=== PATIENT | female | born 1990 | race African-American/Black ===

== ENCOUNTER 2019-03-27 06:23 | Inpatient (IN) ==
[2019-03-27] MEDS ORDERED: CITRIC ACID/SODIUM CITRATE 30 ML UDCUP PO ONE (06:42)
[2019-03-27] MEDS ORDERED: FAMOTIDINE 20 MG/2 ML VIAL IV ONE (06:42)
[2019-03-27] MEDS ORDERED: ceFAZolin 2,000 MG in PREMIX 1 EACH IV ONE (06:42)
[2019-03-27] MEDS ORDERED: LACTATED RINGERS 1,000 ML IV SCH ×3 (07:00→17:47)
[2019-03-27 07:01] LABS: Basophils % 0.3 % (0.0-0.8); Eosinophils % 0.5 % (0.00-10.9); Hematocrit 38.1 VOL% (35.7-47.0); Hemoglobin 12.2 GM/DL (12.0-16.0); Immature Granulocytes % 0.8 %; Immature Granulocytes Absolute 0.06 #; Lymphocytes # 1.3 10*3/uL (1.4-4.0); Lymphocytes % 17.4 % (21.3-54.2); Mean Corpuscular Volume 99.2 FL (87-102); Mean Platelet Volume 10.8 FL (9.6-12.0); Monocytes % 5.2 % (1.7-12.7); Neutrophils % 75.8 % (38.7-73.9); Platelet Count 203 T/CUMM (130-400); Red Blood Count 3.84 MC/CUMM (3.8-5.5); Red Cell Distribution Width 13.7 % (9.3-17.3); White Blood Count 7.3 T/CUMM (4-12)
[2019-03-27 07:20] LABS: Albumin 2.4 G/DL (3.4-5.0); Bilirubin,Total 0.4 MG/DL (0.2-1.0); Calcium 8.6 MG/DL (8.5-10.1); Osmolality,Calculated 272.8 MOS/KG (273-304); Total Protein 6.9 G/DL (6.4-8.3)
[2019-03-27] MEDS ORDERED: OXYTOCIN/LR 30 UNIT/1,000 ML BAG IV ONE (07:35)
[2019-03-27] MEDS ORDERED: OXYTOCIN 10 UNIT/ML VIAL IM ONE (07:35)
[2019-03-27 09:51] LABS: Cord Venous Blood HCO3 25.8 MMOL/L; Cord Venous Blood PCO2 50.4 MMHG; Cord Venous Blood PO2 28.5 MMHG
[2019-03-27 09:52] LABS: Cord Arterial Blood HCO3 19.5 MMOL/L
[2019-03-27 09:58] LABS: Apearance,Urine CLEAR (Clear); Bilirubin,Urine Negative (Negative); Blood, Urine Negative (Negative); Glucose,Urine (UA) Negative (Negative); Ketones,Urine 5 mg/dL (Negative); Mucus,Urine Occasional /LPF (Occasional); Nitrite,Urine Negative (Negative); Protein,Urine Negative; RBC,Urine <1 /HPF (0-4); Squamous Epithelial Cell,Urine Occasional /HPF (0-10); Urine Color Yellow (Yellow); Urine Specific Gravity 1.017 (1.001-1.035); Urine Urobilinogen < 2.0 EU/DL (0.2-1.0); WBC,Urine <1 /HPF (0-6)
[2019-03-27] MEDS ORDERED: PHENYLEPHRINE 1 MG/10 ML SYRINGE IV ONE (10:03)
[2019-03-27] MEDS ORDERED: MORPHINE 10 MG/10 ML VIAL ONE (10:03)
[2019-03-27] MEDS ORDERED: ONDANSETRON 4 MG/2 ML VIAL ONE (10:04)
[2019-03-27] MEDS ORDERED: OXYTOCIN/LR 20 UNIT/1,000 ML BAG IV ONE (10:16)
[2019-03-27] MEDS ORDERED: ACETAMINOPHEN 325 MG TABLET PO PRN (10:16)
[2019-03-27] MEDS ORDERED: MAGNESIUM HYDROXIDE SUSP 30 ML UDCUP PO PRN (10:16)
[2019-03-27] MEDS ORDERED: ONDANSETRON 4 MG/2 ML VIAL IV PRN (10:16)
[2019-03-27] MEDS ORDERED: RHO(D) IMMUNE GLOBULIN 300 MCG SYRINGE IM ONE (10:16)
[2019-03-27] MEDS ORDERED: SIMETHICONE CHEW 80 MG TABLET PO PRN (10:16)
[2019-03-27] MEDS ORDERED: BUPIVACAINE 0.5% 50 ML VIAL ONE (10:41)
[2019-03-27] MEDS ORDERED: DEXAMETHASONE 4 MG/1 ML VIAL ONE (10:41)
[2019-03-27] MEDS ORDERED: BUPIVACAINE SPINAL 0.75% 2 ML AMP SPINAL ONE (13:36)
[2019-03-27] MEDS: ceFAZolin 1,000 MG in SYRINGE 1 EACH IV SCH (17:15)
[2019-03-27 19:10] LABS: Basophils % 0.2 % (0.0-0.8); Hematocrit 32.5 VOL% (35.7-47.0); Hemoglobin 10.8 GM/DL (12.0-16.0); Immature Granulocytes % 0.4 %; Immature Granulocytes Absolute 0.05 #; Lymphocytes % 8.4 % (21.3-54.2); Mean Corpuscular HGB Conc 33.2 GM/DL (32-36); Mean Platelet Volume 10.7 FL (9.6-12.0); Monocytes % 5.1 % (1.7-12.7); Neutrophils % 85.9 % (38.7-73.9); Platelet Count 179 T/CUMM (130-400); Red Blood Count 3.35 MC/CUMM (3.8-5.5); Red Cell Distribution Width 13.4 % (9.3-17.3); White Blood Count 11.6 T/CUMM (4-12)
[2019-03-27] MEDS: DOCUSATE SODIUM 100 MG CAPSULE PO SCH (20:12)
[2019-03-28] MEDS: ceFAZolin 1,000 MG in SYRINGE 1 EACH IV SCH (02:16)
[2019-03-28 04:50] LABS: Basophils % 0.2 % (0.0-0.8); Eosinophils % 0.2 % (0.00-10.9); Hematocrit 30.7 VOL% (35.7-47.0); Hemoglobin 10.1 GM/DL (12.0-16.0); Immature Granulocytes % 0.3 %; Immature Granulocytes Absolute 0.03 #; Lymphocytes # 1.5 10*3/uL (1.4-4.0); Lymphocytes % 17.3 % (21.3-54.2); Mean Corpuscular HGB Conc 32.9 GM/DL (32-36); Mean Corpuscular Volume 97.2 FL (87-102); Mean Platelet Volume 11.2 FL (9.6-12.0); Monocytes % 8.4 % (1.7-12.7); Neutrophils % 73.6 % (38.7-73.9); Platelet Count 171 T/CUMM (130-400); Red Blood Count 3.16 MC/CUMM (3.8-5.5); Red Cell Distribution Width 13.4 % (9.3-17.3); White Blood Count 8.9 T/CUMM (4-12)
[2019-03-28] MEDS: MULTIVITAMIN (PRENATAL) TABLET PO SCH ×2 (07:47→14:43)
[2019-03-28] MEDS: DOCUSATE SODIUM 100 MG CAPSULE PO SCH ×3 (07:47→21:12)
[2019-03-28] MEDS: IBUPROFEN 800 MG TABLET PO PRN ×2 (07:47→16:15)
[2019-03-28] MEDS: METOCLOPRAMIDE 10 MG TABLET PO SCH ×2 (07:47→16:15)
[2019-03-28] MEDS ORDERED: PROMETHAZINE 25 MG/1 ML VIAL IM ONE (16:08)
[2019-03-28] MEDS ORDERED: MEPERIDINE 50 MG/1 ML VIAL IM ONE (16:08)
[2019-03-28] MEDS ORDERED: MEPERIDINE 25 MG/1 ML VIAL ONE (16:11)
[2019-03-28] MEDS: oxyCODONE/ACETAMINOPHEN 5-325 MG TABLET PO PRN (21:12)
[2019-03-29] MEDS: METOCLOPRAMIDE 10 MG TABLET PO SCH ×2 (00:03→08:27)
[2019-03-29] MEDS: oxyCODONE/ACETAMINOPHEN 5-325 MG TABLET PO PRN (04:25)
[2019-03-29 07:28] VITALS: BP 109/70
[2019-03-29] MEDS: IBUPROFEN 800 MG TABLET PO PRN (08:27)
[2019-03-29] MEDS: MULTIVITAMIN (PRENATAL) TABLET PO SCH (09:57)
[2019-03-29] MEDS: DOCUSATE SODIUM 100 MG CAPSULE PO SCH (09:57)
[2019-03-29] MEDS ORDERED: DIPH/TET/ACEL PERT BOOSTER VACCINE 0.5 ML VIAL IM ONE (11:40)
== END 2019-03-29 12:20 | disposition home or self-care (01) | DRG 540 ==
LOC: N.LDOUT 06:23 → N.LD 06:24 → N.OB 14:13
PROVIDERS: ADMIT Obstetrics & Gynecology; ATTEND Obstetrics & Gynecology
PROC: LDCSECT (ICD-10-PCS; 2019-03-27 09:00)